=== PATIENT | female | born 1995 | race Caucasian/White ===

== ENCOUNTER → 2017-07-02 | Outpatient (REF) | payer OTHER | LOC: M LAB REF 13:09 | PROVIDERS: ATTEND Physician Assistant Medical | DX: J02.9 Acute pharyngitis, unspecified (principal) ==

== ENCOUNTER 2017-10-16 09:32 | Outpatient (REF) | payer OTHER | END 2017-10-17 | LOC: M LAB REF 09:32 | DX: N30.01 Acute cystitis with hematuria (principal) ==

== ENCOUNTER → 2019-02-02 | Outpatient (CLI) | payer OTHER ==
[2019-02-02 13:48] LABS: MEAN CORPUSCULAR HEMOGLOBIN 34.1 pg (27.0-33.0); MEAN CORPUSCULAR HGB CONC 33.3 g/dl (32.0-36.5); MEAN CORPUSCULAR VOLUME 102.2 fl (80.0-96.0); PLATELET COUNT, AUTOMATED 292 10^3/uL (150-450); RED BLOOD COUNT 4.11 10^6/uL (4.00-5.40); WHITE BLOOD COUNT 6.6 10^3/uL (4.0-10.0)
[2019-02-02 15:18] LABS: ALBUMIN 3.7 GM/DL (3.2-5.2); ALT/SGPT 20 U/L (12-78); BILIRUBIN,TOTAL 0.5 MG/DL (0.2-1.0); BLOOD UREA NITROGEN 11 MG/DL (7-18); CALCIUM LEVEL 9.7 MG/DL (8.5-10.1); CHLORIDE LEVEL 105 MEQ/L (98-107); CHOLESTEROL LEVEL 167 MG/DL (<200); CHOLESTEROL RISK RATIO 1.721 (<5); CREATININE FOR GFR 0.82 MG/DL (0.55-1.30); FREE T4 1.11 NG/DL (0.76-1.46); GLOMERULAR FILTRATION RATE > 60.0 (>60); GLUCOSE, FASTING 84 MG/DL (70-100); HDL CHOLESTEROL 97 MG/DL (>40); LDL CHOLESTEROL 51 MG/DL (<100); NON-HDL-C 70 MG/DL; POTASSIUM SERUM 4.3 MEQ/L (3.5-5.1); SODIUM LEVEL 139 MEQ/L (136-145); TOTAL PROTEIN 7.5 GM/DL (6.4-8.2); TRIGLYCERIDES LEVEL 94 MG/DL (<150)
[2019-02-02 15:33] LABS: CARBON DIOXIDE LEVEL 27 MEQ/L (21-32)
== END ==
LOC: M SMT 10:46
PROVIDERS: ATTEND Advanced Practice Midwife
DX: Z01.411 Encounter for gynecological examination (general) (routine) with abnormal findings (principal)
CPT/HCPCS: 36415; 80053; 80061; 82306; 84439; 84443; 85027; G0123

== ENCOUNTER → 2019-02-02 | Outpatient (REF) | payer OTHER | LOC: M LAB REF 19:40 | PROVIDERS: ATTEND Advanced Practice Midwife | DX: Z12.4 Encounter for screening for malignant neoplasm of cervix (principal) ==

== ENCOUNTER → 2020-06-21 | Outpatient (REF) | payer OTHER ==
[2020-06-21 18:45] LABS: BASO % 0.2 % (0.0-1.0); EOS # 0.1 10^3/uL (0.0-0.5); EOS % 0.6 % (0.0-3.0); HEMOGLOBIN 13.3 g/dl (12.0-15.5); LYMPH # 3.3 10^3/uL (1.5-5.0); LYMPH % 30.6 % (24.0-44.0); MEAN CORPUSCULAR HEMOGLOBIN 34.5 pg (27.0-33.0); MEAN CORPUSCULAR HGB CONC 34.1 g/dl (32.0-36.5); MONO # 0.7 10^3/uL (0.0-0.8); MONO % 6.2 % (0.0-5.0); NEUTROPHILS # 6.7 10^3/uL (1.5-8.5); PLATELET COUNT, AUTOMATED 306 10^3/uL (150-450); RED BLOOD COUNT 3.86 10^6/uL (4.00-5.40); WHITE BLOOD COUNT 10.8 10^3/uL (4.0-10.0)
[2020-06-21 21:18] LABS: CHLAMYDIA DNA AMPLIFICATION NEGATIVE (NEGATIVE); GC DNA AMPLIFICATION NEGATIVE (NEGATIVE)
[2020-06-22 12:15] LABS: HEPATITIS C VIRUS ABY INDEX 0.1 INDEX (<0.8); HIV 1&2 SCREEN CENTAUR NEGATIVE (NEGATIVE)
== END ==
LOC: M LABDRWAD 14:13
PROVIDERS: ATTEND Advanced Practice Midwife
DX: Z34.01 Encounter for supervision of normal first pregnancy, first trimester (principal); Z3A.00 Weeks of gestation of pregnancy not specified

== ENCOUNTER → 2020-07-18 | Outpatient (CLI) | payer OTHER | LOC: M PLALAB 08:50 | PROVIDERS: ATTEND Advanced Practice Midwife | DX: Z13.79 Encounter for other screening for genetic and chromosomal anomalies (principal) ==

== ENCOUNTER → 2020-09-04 | Outpatient (CLI) | payer BC ==
--- NOTE | 2020-09-04 09:36 | REP ---
INDICATION: ANATOMY COMPARISON: None. TECHNIQUE: Transabdominal obstetrical ultrasound with color Doppler evaluation. FINDINGS: Examination demonstrates a single live intrauterine in cephalic presentation. motion is identified by technologist. Placenta is noted anterior and grade 1 without evidence for placenta previa or abruption. Amniotic fluid volume is normal. Cervix measures 3.1 cm in length and appears closed.. Gestational age by current measurements 18 weeks 6 days with SAM 01/30/2021. FHR equals 146 beats per minute. BPD: 4.3 cm 19 weeks 1 day HC: 15.7 cm 18 weeks 4 days AC: 13.5 cm 19 weeks 0 days FL: 2.8 cm 18 weeks 4 days HL: 2.8 cm 18 weeks 6 days HC/AC: 1.16 Estimated weight 258 grams (76thpercentile). Anatomical assessment demonstrates normal structures including cranium, choroid plexus, cavum, cerebellum/posterior fossa, facial features, lungs, four-chamber heart/ventricular outflow tracts, diaphragm, stomach, cord insertion/three-vessel cord, kidneys/bladder, spine, and extremities. Echogenic focus within the left cardiac ventricle likely prominent chordae tendineae. IMPRESSION: Single live intrauterine in cephalic presentation demonstrating appropriate estimated weight. Anatomical assessment is essentially normal as described above. <Electronically signed by Liborio Mcclain > 09/04/20 [id number]
== END ==
LOC: M WHC 07:59
PROVIDERS: ATTEND Advanced Practice Midwife
DX: Z34.02 Encounter for supervision of normal first pregnancy, second trimester (principal); Z3A.18 18 weeks gestation of pregnancy

== ENCOUNTER → 2020-10-29 | Outpatient (REF) | payer OTHER ==
[2020-10-29 12:51] LABS: HEMATOCRIT 35.8 % (36.0-47.0); HEMOGLOBIN 11.9 g/dl (12.0-15.5); MEAN CORPUSCULAR HEMOGLOBIN 34.6 pg (27.0-33.0); MEAN CORPUSCULAR HGB CONC 33.2 g/dl (32.0-36.5); MEAN CORPUSCULAR VOLUME 104.1 fl (80.0-96.0); PLATELET COUNT, AUTOMATED 266 10^3/uL (150-450); RED BLOOD COUNT 3.44 10^6/uL (4.00-5.40); WHITE BLOOD COUNT 11.1 10^3/uL (4.0-10.0)
== END ==
LOC: M PLALAB 10:54 → M SFHCADAM 10:57
PROVIDERS: ATTEND Advanced Practice Midwife
DX: Z34.02 Encounter for supervision of normal first pregnancy, second trimester (principal)

== ENCOUNTER → 2020-11-05 | Outpatient (REF) | payer SELFPAY | LOC: M LABSMTC 08:35 → EDSTATUS 12:25 | PROVIDERS: ATTEND Pediatrics | DX: Z20.822 Contact with and (suspected) exposure to COVID-19 (principal) ==

== ENCOUNTER → 2020-12-26 | Outpatient (REF) | payer OTHER ==
[~2020-12-26] MED LIST: ACET-897 PO; AMOX500C PO; DIFL150T PO; FOLI1TAB11 PO; IBUP80TA PO; MAGN250T22 PO; PEPC1TAB5 PO; PRENTAB9 PO; VALT1TAB PO
[2020-12-26 13:38] LABS: HEMATOCRIT 38.6 % (36.0-47.0); HEMOGLOBIN 12.8 g/dl (12.0-15.5); MEAN CORPUSCULAR HEMOGLOBIN 33.7 pg (27.0-33.0); MEAN CORPUSCULAR HGB CONC 33.2 g/dl (32.0-36.5); MEAN CORPUSCULAR VOLUME 101.6 fl (80.0-96.0); PLATELET COUNT, AUTOMATED 280 10^3/uL (150-450); WHITE BLOOD COUNT 13.3 10^3/uL (4.0-10.0)
[2020-12-26 14:31] LABS: ALT/SGPT 14 U/L (12-78); BILIRUBIN,TOTAL 0.4 MG/DL (0.2-1.0); CREATININE FOR GFR 0.55 MG/DL (0.55-1.30); GLOMERULAR FILTRATION RATE > 60.0 (>60); LDH LACTATE DEHYDROGENASE 146 U/L (84-246); URIC ACID 4.3 MG/DL (2.6-6.0)
[2020-12-26 14:40] LABS: CREATININE,RANDOM URINE 66.1 MG/DL
== END ==
LOC: M PLALAB 10:03
PROVIDERS: ATTEND Advanced Practice Midwife
DX: O16.3 Unspecified maternal hypertension, third trimester (principal); Z3A.00 Weeks of gestation of pregnancy not specified

== ENCOUNTER 2020-12-31 12:08 | Outpatient (CLI) | payer BC, OTHER ==
[~2020-12-31] VITALS: Ht 170.2 cm; Wt 84.0 kg
[2020-12-31] MEDS ORDERED: PRENTAB9 PO (12:17)
[2020-12-31 12:23] VITALS: BP 140/87
[2020-12-31 12:41] VITALS: BP 137/78
[2020-12-31] MEDS ORDERED: BETAMETHASONE SOLUSPAN 6MG/ML 5ML VIAL (J0702 PER 3MG) IM ONE (13:15)
[2020-12-31 13:31] LABS: HEMATOCRIT 37.2 % (36.0-47.0); HEMOGLOBIN 12.7 g/dl (12.0-15.5); MEAN CORPUSCULAR HEMOGLOBIN 34.4 pg (27.0-33.0); MEAN CORPUSCULAR HGB CONC 34.1 g/dl (32.0-36.5); MEAN CORPUSCULAR VOLUME 100.8 fl (80.0-96.0); PLATELET COUNT, AUTOMATED 266 10^3/uL (150-450); RED BLOOD COUNT 3.69 10^6/uL (4.00-5.40); WHITE BLOOD COUNT 13.8 10^3/uL (4.0-10.0)
[2020-12-31 13:41] LABS: INR 0.89; PROTHROMBIN TIME 12.3 SECONDS (12.5-14.3)
[2020-12-31 13:42] LABS: PARTIAL THROMBOPLASTIN TIME 26.4 SECONDS (24.2-38.5)
[2020-12-31 14:03] LABS: AMORPHOUS SEDIMENT SMALL (NEGATIVE); APPEARANCE, URINE HAZY (CLEAR); BACTERIA, URINE AUTO 2+ (NEGATIVE); BILIRUBIN, URINE AUTO NEGATIVE (NEGATIVE); BLOOD, URINE BLOOD 3+ (NEGATIVE); COLOR, URINE RED (YELLOW); GLUCOSE, URINE (UA) AUTO NEGATIVE (NEGATIVE); KETONE, URINE AUTO NEGATIVE (NEGATIVE); LEUKOCYTE ESTERASE, URINE AUTO NEGATIVE (NEGATIVE); NITRITE, URINE AUTO NEGATIVE (NEGATIVE); PROTEIN, URINE AUTO NEGATIVE (NEGATIVE); RBC, URINE AUTO 4 /HPF (0-3); SPECIFIC GRAVITY URINE AUTO 1.002 (1.002-1.035); SQUAMOUS EPITHELIAL CELL UR AU 2 /HPF (0-6); UROBILINOGEN, URINE AUTO 0.2 mg/dL (0.0-2.0); WBC, URINE AUTO 2 /HPF (0-3)
--- NOTE | 2020-12-31 14:06 | REP ---
INDICATION: bleeding. COMPARISON: 09/04/2020. TECHNIQUE: Real-time sonographic evaluation of gravid uterus performed utilizing transabdominal and endovaginal technique. FINDINGS: Fluid is seen throughout the cervical canal with the diameter of the cervix 2-3 mm. There is no measurable closed portion of the cervix. Gestational age is reportedly 35 weeks 5 days with EDC 01/30/2021. position cephalic. Placenta anterior and grade 1 with no previa or abruption. heart rate 134 beats per minute. Amniotic fluid within normal limits. CHRIS 9.6, normal range 7.8-24.9. SD ratio umbilical artery 2.59, normal range 1.65-3.53. RI 0.61, normal range 0.45-0.71. IMPRESSION: Fluid is seen throughout the cervical canal with the diameter of the cervix 2-3 mm. There is no measurable closed portion of the cervix. Normal CHRIS. <Electronically signed by Doug Regan > 12/31/20 [id number]
[2020-12-31 14:38] VITALS: BP 134/76
[2020-12-31] MEDS ORDERED: metroNIDAZOLE (FLAGYL) 500MG TABLET PO ONE (15:35)
[2020-12-31] MEDS: AMOXICILLIN 500 MG CAP PO SCH ×2 (16:45→22:22)
[2020-12-31 16:47] VITALS: BP 119/58
[2020-12-31 19:03] VITALS: BP 145/81
--- NOTE | 2020-12-31 19:50 | IPNPDOC ---
Text Note Date of Service The patient was seen on 12/31/20. NOTE Subjective: Opal is a 25-year-old female who is a at 35.1 weeks ges tation. Her has been uncomplicated. She reports on Thursday she had pink spotting one time when she wiped. She did report a run of contractions that day. Denied vaginal intercourse. Today she reports some cramping and noted dark red/brown spotting when she wiped again today. She reports active movement. She denies leaking of fluid but does report a moderate amount of mucus. Denies vaginal itching or vaginal odor. She did request about a month ago Diflucan for a yeast infection. Objective: FHR: 130, moderate variability, positive accelerations, no decelerations. [place]: occasional General: Alert and oriented. No apparent distress. Respiratory: Regular rate without use accessory muscles. Abdomen: gravid, soft to palpation, very mild contractions noted occasionally with palpation SSE: cervix appears about 50%, no bleeding noted in the vagina, cervical mucous noted with thick white adherent discharge with some brown mixed in dishcarge. SCE: FT/80/-1, midposition, soft, no show with exam. After exam a moderate amount of bleeding was noted. Wet prep: cervical mucus, some red blood cells, scant amount of clue cells, negative whiff test, +yeast buds noted. VS, labs, US: see below. Assessment: IUP at 35.1 weeks gestation, shortened cervical length, candidiasis of vagina, cervicitis, rule out labor Plan: Continue to monitor, US for CHRIS and cervical length. GBS obtained. Betamethasone initiated. Abruption labs ordered due to moderate amount of bleeding and contractions. PO antibiotics and Diflucan given. Plan to discharge with PO antibiotics and 1 more dose of Diflucan if no progression in labor. Patient will be taken out of work for remainder of . VS,Fishbone, I+O VS, Fishbone, I+O Laboratory Tests 12/31/20 13:15 Vital Signs Date Time Temp Pulse Resp B/P (MAP) Pulse Ox O2 Delivery O2 Flow Rate FiO2 12/31/20 19:03 98.5 88 18 145/81 (102) NAME: OPAL KAPOOR DATE OF : 1995 AGE: 25 SEX: F REPORT #: [id number] ROOM: [facility] TECHNOLOGIST: GUMARO DOCTOR: JOANNA DOCKERY CNM Ordered for Date&Time: 12/31/20 1307 cc: [~ rep ct ivnm] Service Date&Time: 12/31/20 1311 EXAMINATION REQUESTED: Obs. Limited, CHRIS US REASON FOR PATIENT VISIT: LABOR CHECK REASON FOR EXAM/COMMENT: bleeding INDICATION: bleeding. COMPARISON: 09/04/2020. TECHNIQUE: Real-time sonographic evaluation of gravid uterus performed utilizing trans abdominal and endovaginal technique. FINDINGS: Fluid is seen throughout the cervical canal with the diameter of the cervix 2-3 mm. There is no measurable closed portion of the cervix. Gestational age is reportedly 35 weeks 5 days with EDC 01/30/2021. position cephalic. Placenta anterior and grade 1 with no previa or abruption. heart rate 134 beats per minute. Amniotic fluid within normal limits. CHRIS 9.6, normal range 7.8-24.9. SD ratio umbilical artery 2.59, normal range 1.65-3.53. RI 0.61, normal range 0.45-0.71. IMPRESSION: Fluid is seen throughout the cervical canal with the diameter of the cervix 2-3 mm. There is no measurable closed portion of the cervix. Normal CHRIS. <Electronically signed by Doug Regan > 12/31/20 1402 JOANNA DOCKERY CNM Dec 31, 2020 19:50
[2020-12-31 20:06] LABS: ALT/SGPT 17 U/L (12-78); BILIRUBIN,TOTAL 0.1 MG/DL (0.2-1.0); CREATININE FOR GFR 0.55 MG/DL (0.55-1.30); GLOMERULAR FILTRATION RATE > 60.0 (>60); LDH LACTATE DEHYDROGENASE 188 U/L (84-246); URIC ACID 4.4 MG/DL (2.6-6.0)
[2020-12-31 20:28] LABS: CREATININE,RANDOM URINE < 13.0 MG/DL; TOTAL PROTEIN,RANDOM URINE 11.7 MG/DL (0.0-12.0)
[2020-12-31 23:12] VITALS: BP 111/59
[2021-01-01] VITALS (7 sets, daily range): BP systolic 126–137; BP diastolic 71–83
[2021-01-01] MEDS: AMOXICILLIN 500 MG CAP PO SCH ×2 (06:05→13:22)
[2021-01-01 06:53] LABS: CREATININE,RANDOM URINE 28.5 MG/DL; TOTAL PROTEIN,RANDOM URINE 9.3 MG/DL (0.0-12.0)
--- NOTE | 2021-01-01 07:58 | IPNPDOC ---
Text Note Date of Service The patient was seen on 01/01/21. NOTE Subjective: Opal is a 25-year-old female who is a at 35.2 weeks with an SAM of 02/03/21. She reports her bleeding has decreased and barely noted until she wipes that is dark brown. She denies cramping but reports some abdominal tightening. [place] any leaking of fluid. Reports active movement. Objective: FHR: 130, moderate variability, positive accelerations, no decelerations. [place]: every 2-6 minutes VS and labs: stable. Spot urine is decreasing -elevated likely due to blood in urine. Will repeat on . General: Alert and oriented. No apparent distress. Respiratory: Regular rate without use of accessory muscles. Abdomen: Abdomen not tender. Very mild palpation when contractions occur. Assessment: IUP at 35.2 weeks gestation, cervicitis, candidiasis, shortened cervix Plan: Patient to be discharged to home after her betamethasone has been given. Scripts sent for antibiotics and 1 more dose of Flagyl. She has been taken out of work for the remainder of her . She will be discharged with precautions. Appointment scheduled for this week. VS,Fishbone, I+O VS, Fishbone, I+O Laboratory Tests 12/31/20 13:15 Vital Signs Date Time Temp Pulse Resp B/P (MAP) Pulse Ox O2 Delivery O2 Flow Rate FiO2 01/01/21 07:25 99.2 82 16 137/83 (101) JOANNA DOCKERY CNM Jan 01, 2021 07:58
[2021-01-01] MEDS ORDERED: AMOX500C PO (08:08)
[2021-01-01] MEDS ORDERED: DIFL150T PO (08:08)
[2021-01-01] MEDS ORDERED: BETAMETHASONE SOLUSPAN 6MG/ML 5ML VIAL (J0702 PER 3MG) IM ONE (13:15)
== END 2021-01-01 13:40 | disposition home or self-care (01) ==
LOC: M LDO 12:08
PROVIDERS: ATTEND Advanced Practice Midwife
DX: O23.513 Infections of cervix in pregnancy, third trimester (principal); O46.93 Antepartum hemorrhage, unspecified, third trimester; Z3A.35 35 weeks gestation of pregnancy; O26.873 Cervical shortening, third trimester; B37.9 Candidiasis, unspecified
CPT/HCPCS: 36415; 59025; 76815; 76817; 81001; 82247; 82565; 82570; 83615; 84156; 84450; 84460; 84550; 85027; 85384; 85610; 85730; 86780; 86850; 86900; 86901; 87081; 96372; G0378; G0463; J0702

== ENCOUNTER 2021-01-06 18:31 | Inpatient (IN) | payer BC, OTHER ==
[2021-01-06] VITALS (25 sets, daily range): BP systolic 121–158; BP diastolic 68–97
[~2021-01-06] VITALS: Ht 170.2 cm; Wt 86.0 kg
[~2021-01-06 18:31] MED LIST changes: -ACET-897 PO; -FOLI1TAB11 PO; -IBUP80TA PO; -MAGN250T22 PO; -PEPC1TAB5 PO; -VALT1TAB PO
[2021-01-06] MEDS ORDERED: LACTATED RINGER'S 1000 ML IV STA (19:13)
[2021-01-06] MEDS ORDERED: TRANEXAMIC ACID INJection 1,000 MG in NS 100 ML IV PRN (19:15)
[2021-01-06] MEDS ORDERED: CARBOPROST TROMETHAMINE 250 MCG/ML AMP IM PRN (19:15)
[2021-01-06] MEDS ORDERED: METHYLERGONOVINE MALEATE 0.2 MG/ML VIAL (J2210) IM PRN (19:15)
[2021-01-06] MEDS ORDERED: OXYTOCIN DRIP 30 UNITS in IV 1 EA IV PRN (19:15)
--- NOTE | 2021-01-06 19:57 | HPEPDOC ---
Obstetrical History & Physical General Date of Admission Jan 06, 2021 at 19:05 Primary Care Physician: JOANNA DOCKERY CNM History of Present Illness Opal is a 25-year-old female who is a at 36 weeks gestation with an SAM of 02/03/21 based off of her first trimester ultrasound. she initiated car ein her first trimester of with WWBC. 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 No infection in the last 4 + weeks. She has a history of migraines and has been taking Magnesium for prevention. She was diagnosed with GHTN and a short cervical length at 35 weeks. Her cervix measured 2-3 mm and she was diagnosed with a yeast infection at that time. She was betamethasone complete on 01/01/21. She presents to L&D with complaints of leaking of fluid starting at 1700. Fluid was clear. She reports contractions and active movement. She denies vaginal bleeding. Chief Complaint: Rupture of membranes Information Provided By: Patient Age: 25 : 1 Term: 0 Pre-term: 0 Abortions: 0 Livin Care Care: Good Care Dating Final EDC: Feb 03, 2021 Final EDC by: 1st trimester (US) EGA at Admission: 36 Antepartum Course Diagnos(e)s short cervical length at 35 weeks- beta complete HSV II- GHTN diagnosed at 35 weeks Past Medical History Past Obstetrical History : Past Obstetrical History: [employer] History: Herpes simplex virus(HSV) Past Medical History Surgical History: Appendectomy, Tonsilectomy Family History Significant Family History: Cancer (kidney, pancreatic, prostate), Diabetes, Hypertension, Other (hypothyroidism) Social History Marital Status: Family situation: Spouse/partner home Psychosocial History: No pertinent psych hx * Smoker: non-smoker Alcohol: Denies Drugs: denies Abuse Violence Screening Have you been hit/kicked/slapp: No Imunizations Tdap status: current Influenza Status: current Allergies Coded Allergies: No Known Allergies (Unverified , 12/31/20) Medications Scheduled Amoxicillin (Amoxicillin) 500 Mg Capsule, 500 MG PO Q8H Fluconazole (Diflucan) 150 Mg Tablet, 1 TAB PO ONCE for yeast infection No.137/Iron/Folic Acd ( Vitamin Tablet) 1 Each Tablet, 1 TAB PO DAILY Physical Examination Physical Examination GENERAL: Alert and oriented times three. BREAST: . ABDOMEN: Gravid and non-tender to touch. FETUS: Is vertex (VTX) by sterile vaginal examination (SVE), fetus is vertex (VTX) by Crow. EFW 3300 grams. Cephalic via ultrasound. LUNGS: Clear to auscultation (CTA). EXTREMITIES: No edema. No clonus. Deep tendon reflexes (DTRs) + 2. Laboratory Data 24H LABS Laboratory Tests 2 01/06/21 19:08: Serology Scanned Report Hepatitis B Testing Urine Culture: No Growth Pertinent Laboratoy Data Blood Type: A+ RBC Antibody Screen: Negative HIV: Negative Hepatitis B: Negative Hepatitis C: Negative Rapid Plasma Reagin: Nonreactive Rubella: Immune Chlamydia/Gonorrhea: Negative Group B Streptococcus: Negative Cystic Fibrosis: Negative Glucose Tolerance Test: 88 Vaginal Examination Dilation: 1cm Effacement: 100% Station: -1 (+ nitrazine noted on pad. ) Cervical Position: Anterior Presentation: Cephalic presentation Position: Vertex (occiput) Assessment Heart Rate (FHR): 140 Variability: Moderate Accelerations: Positive Decelerations: None Tocometer Contractions: Yes Frequency: regular, every 2-5 min. Multi-drug resistant Organism: No history of MDRO Assessment/Plan Assessment IUP at 36 weeks gestation GBS negative GHTN PROM Category I FHR tracing Plan Admit to L&D. OOB ad donal. Diet: clears. Group B Streptococcus (GBS) negative. Labs and intravenous (IV) per unit protocol. Counseled on Pitocin for induction of labor. Anesthesia consult per patient's request. Lactated Ringers (LR): Bolus 800 mL, then at 125 mL/hr. Dr. Fang notified for neonatology. Anticipate cervical change. C-S as appropriate. JOANNA DOCKERY CNM Jan 06, 2021 19:57
[2021-01-06 20:20] LABS: HEMATOCRIT 41.7 % (36.0-47.0); HEMOGLOBIN 14.2 g/dl (12.0-15.5); MEAN CORPUSCULAR HEMOGLOBIN 33.8 pg (27.0-33.0); MEAN CORPUSCULAR HGB CONC 34.1 g/dl (32.0-36.5); MEAN CORPUSCULAR VOLUME 99.3 fl (80.0-96.0); PLATELET COUNT, AUTOMATED 311 10^3/uL (150-450); WHITE BLOOD COUNT 16.9 10^3/uL (4.0-10.0)
[2021-01-06] MEDS ORDERED: OXYTOCIN DRIP 30 UNITS in IV 1 EA IV SCH (20:35)
[2021-01-06] MEDS ORDERED: ACETAMINOPHEN 500 MG TAB PO PRN (20:35)
[2021-01-06] MEDS ORDERED: ACET-897 PO (20:36)
[2021-01-06] MEDS ORDERED: PEPC1TAB5 PO (20:36)
[2021-01-06] MEDS ORDERED: FOLI1TAB11 PO (20:36)
[2021-01-06] MEDS ORDERED: MAGN250T22 PO (20:36)
[2021-01-06] MEDS ORDERED: VALT1TAB PO (20:36)
[2021-01-06 20:45] LABS: ALT/SGPT 16 U/L (12-78); BILIRUBIN,TOTAL < 0.1 MG/DL (0.2-1.0); CREATININE FOR GFR 0.63 MG/DL (0.55-1.30); GLOMERULAR FILTRATION RATE > 60.0 (>60); LDH LACTATE DEHYDROGENASE 158 U/L (84-246); URIC ACID 4.1 MG/DL (2.6-6.0)
[2021-01-06] MEDS ORDERED: valACYclovir HCL 500 MG TAB PO SCH (21:00)
[2021-01-06] MEDS ORDERED: FENTANYL 2MCG/ML ROPIVACAINE 0.2% IN 0.9% NACL 100ML IVBAG As Ordered ONE (21:57)
[2021-01-06] MEDS: LR 1,000 ML IV SCH (22:55)
[2021-01-06] MEDS ORDERED: diphenhydrAMINE 50MG/ML VIAL (J1200) IV PRN (23:35)
[2021-01-06] MEDS ORDERED: LACTATED RINGER'S 1000 ML IV PRN (23:35)
[2021-01-06] MEDS ORDERED: EPIDURAL COMMENT XX SCH (23:35)
[2021-01-06] MEDS ORDERED: NALOXONE INJ 0.4MG/1ML VIAL (J2310 PER 1MG) IV PRN (23:35)
[2021-01-06] MEDS ORDERED: FENTANYL/ROPIVACAINE/NACL BAG 100 ML EPIDURAL SCH (23:35)
[2021-01-06] MEDS ORDERED: REFRIGERATOR IV KEYS XX PRN (23:35)
[2021-01-06] MEDS ORDERED: ePHEDrine SULFATE 25 MG/5 ML(5MG/ML) SYRINGE IV PRN (23:35)
[2021-01-06] MEDS ORDERED: EPIDURAL/PCA KEYS XX PRN (23:35)
[2021-01-06] MEDS ORDERED: ONDANSETRON 4MG/2ML VIAL IV PRN (23:35)
[2021-01-07] VITALS (16 sets, daily range): BP systolic 100–155; BP diastolic 56–85
[2021-01-07] MEDS: LR 1,000 ML IV SCH (01:58)
[2021-01-07] MEDS ORDERED: OXYTOCIN DRIP 30 UNITS in IV 1 EA IV SCH (03:56)
[2021-01-07] MEDS ORDERED: MEASLES,MUMPS,RUBELLA VACCINE INJ (MMR-II) (90707) SC SCH (04:00)
[2021-01-07] MEDS ORDERED: RHOGAM 300 MCG (1500 IU) INJ (J2790) IM SCH (04:00)
[2021-01-07] MEDS ORDERED: DIBUCAINE 1% OINTMENT 30GM TOP PRN (04:00)
[2021-01-07] MEDS ORDERED: METHYLERGONOVINE MALEATE 0.2 MG TAB PO PRN (04:00)
[2021-01-07] MEDS ORDERED: IBUPROFEN 600MG TAB PO PRN (04:00)
[2021-01-07] MEDS ORDERED: DOCUSATE SODIUM 100MG CAPSULE PO PRN (04:00)
[2021-01-07] MEDS ORDERED: ACETAMINOPHEN TAB 650MG DOSE (2X325MG) PO PRN (04:00)
[2021-01-07] MEDS ORDERED: ANUSOL HC CREAM 30GM TOP PRN (04:00)
--- NOTE | 2021-01-07 04:14 | DNPDOC ---
[facility] Delivery Note Delivery Note DATE OF DELIVERY: 01/07/21 AT 0323 PREDELIVERY DIAGNOSIS: 36-1/7 weeks' gestation and spontaneous rupture with labor. POST DELIVERY DIAGNOSIS: Delivered. PROCEDURE: Spontaneous vaginal delivery. COMB FIXER: Joanna Hurtado CNM, RUIZ ANESTHESIA: epidural. ESTIMATED BLOOD LOSS: 150 mL. FINDINGS: pound ounce male , Score 9/9, right compound hand, rupture with active labor, short umbilical cord. DELIVERY SUMMARY: Opal is a 25-year-old female who is now a who presented with rupture of membranes at 36 weeks gestation. She received betamethasone last week for spotting and shortened cervix. She requested an epidural for pain management. She progressed to fully dilated at 0122. Prior to first push she reported feeling nauseous. After her first push there was an 8-[address] Canales was called into room for evaluation. The baby recovered and Dr. Canales was able to manually rotate baby into MAGDALENA position from ROP. Opal pushed to a vaginal delivery with baby in MAGDALENA position with restitution to ROT. A right compound hand was noted. The anterior shoulder delivered with ease and the corpus was placed on the maternal abdomen. With the delivery of the fetus the umbilical cord was midway due to traction and a very short umbilical cord. The cord was grasped and clamped quickly. Umbilical cord appears to be less than 15 cm. The placenta delivered easily after the end of the cord was clamped and traction was used. The placenta appears small for gestation. Both the cord and placenta were sent to pathology. Uterine hemostasis was achieved via rapid infusion of IV Pitocin and fundal massage. The cervix, perineum, and vagina were inspected and found to have a 2nd degree perineal laceration that was repaired with a 3.0 Vicryl. They plan on naming him Kristofer. She plans to breastfeed. All counts of instruments and sponges are correct. Both mom and baby are in stable condition. JOANNA HURTADO CNM Jan 07, 2021 04:14
[2021-01-07] MEDS: IBUPROFEN 800 MG TAB PO PRN ×2 (05:31→17:53)
[2021-01-07] MEDS ORDERED: FAMOTIDINE 20 MG TAB PO SCH (09:00)
[2021-01-07] MEDS: PRENATAL VITAMINS CHEWABLE TABLET PO SCH (09:08)
[2021-01-07] MEDS: ACETAMINOPHEN 500 MG TAB PO PRN (11:20)
[2021-01-08] MEDS: IBUPROFEN 800 MG TAB PO PRN ×3 (03:48→22:31)
[2021-01-08 05:58] VITALS: BP 111/58
--- NOTE | 2021-01-08 07:31 | IPNPDOC ---
Progress Note Date of Service: Jan 08, 2021 Day#: 1 Progress Note SUBJECT: Opal is a 25-year-old female who is a who presented at 36 weeks gestation with SROM and active labor. she had vaginal delivery of a living male. She has been ambulating, voiding spontaneously without issue and tolerating regular diet. Breast feeding without issue on left side and using a nipple shield on her left. OBJECTIVE: VITAL SIGNS: Within normal limits, afebrile. Alert and oriented times three. Breath sounds clear to auscultation. Abdomen: Fundus firm at U-4. Soft, NTTP. Minimal lochia. ASSESSMENT: 1 day PLAN: 1. Continue supportive nursing care. 2. Anticipate discharge to home tomorrow. VS, I&O, 24H, Fishbone Vital Signs/I&O Vital Signs Date Time Temp Pulse Resp B/P (MAP) Pulse Ox O2 Delivery O2 Flow Rate FiO2 01/08/21 05:58 98.0 90 16 111/58 (75) 98 Room Air I&O- Last 24 Hours up to 6 AM 01/08/21 06:00 Output Total 800 ml Balance -800 ml JOANNA DOCKERY CNM Jan 08, 2021 07:31
[2021-01-08] MEDS: PRENATAL VITAMINS CHEWABLE TABLET PO SCH (08:18)
[2021-01-08] MEDS: ACETAMINOPHEN 500 MG TAB PO PRN ×2 (08:18→20:02)
[2021-01-08 18:04] VITALS: BP 122/78
[2021-01-09] MEDS: ACETAMINOPHEN 500 MG TAB PO PRN ×2 (05:18→15:02)
[2021-01-09 06:00] VITALS: BP 116/62
[2021-01-09] MEDS ORDERED: IBUP80TA PO (06:35)
[2021-01-09] MEDS: PRENATAL VITAMINS CHEWABLE TABLET PO SCH (07:57)
[2021-01-09] MEDS: IBUPROFEN 800 MG TAB PO PRN ×2 (07:57→15:03)
== END 2021-01-09 15:55 | disposition home or self-care (01) | DRG 560 ==
LOC: M LDO 18:31 → M LDI 19:05 → M OBS 01-07 06:23
PROVIDERS: ADMIT Advanced Practice Midwife; ATTEND Advanced Practice Midwife
PROC: 10E0XZZ Delivery of Products of Conception, External Approach (ICD-10-PCS; principal; 2021-01-07)
PROC: 0KQM0ZZ Repair Perineum Muscle, Open Approach (ICD-10-PCS; principal; 2021-01-07)
DX: O42.013 Preterm premature rupture of membranes, onset of labor within 24 hours of rupture, third trimester (principal); Z3A.36 36 weeks gestation of pregnancy; Z37.0 Single live birth; O13.4 Gestational [pregnancy-induced] hypertension without significant proteinuria, complicating childbirth; O26.873 Cervical shortening, third trimester; O64.5XX0 Obstructed labor due to compound presentation, not applicable or unspecified; O69.3XX0 Labor and delivery complicated by short cord, not applicable or unspecified; O70.1 Second degree perineal laceration during delivery

== ENCOUNTER → 2021-07-02 | Outpatient (REF) ==
[~2021-07-02] MED LIST changes: +ACET-897 PO; +FOLI1TAB11 PO; +IBUP80TA PO; +MAGN250T22 PO; +PEPC1TAB5 PO; +VALT1TAB PO
== END ==
LOC: M EMP 10:48
PROVIDERS: ATTEND Family Medicine
DX: Z11.52 Encounter for screening for COVID-19 (principal); Z20.822 Contact with and (suspected) exposure to COVID-19

== ENCOUNTER → 2021-07-06 | Outpatient (REF) | LOC: M LABSMTC 10:28 | PROVIDERS: ATTEND Pediatrics | DX: Z20.822 Contact with and (suspected) exposure to COVID-19 (principal) ==

== ENCOUNTER → 2021-08-28 | Outpatient (CLI) | payer BC, OTHER ==
--- NOTE | 2021-08-30 10:31 | REP ---
INDICATION: HYPERTHYROIDISM. COMPARISON: None. TECHNIQUE/RADIOTRACER AND DOSE: After the oral administration of 361.0 uCi of radio iodide 123 a thyroid scan and uptake was performed. FINDINGS: The activity within the thyroid gland is slightly above baseline. There is no evidence of a hot or cold nodule. There is no scintigraphic evidence of thyromegaly. The 24 hour uptake calculation is 1.86%. IMPRESSION: Findings consistent with severe hypothyroidism which could be secondary to burned-out hyperthyroidism due to Pearl's thyroiditis or other form of thyroiditis. This should be evaluated clinically. <Electronically signed by Regan Covington > 08/30/21 0634
== END ==
LOC: M RAD 13:36
PROVIDERS: ATTEND Internal Medicine Endocrinology, Diabetes & Metabolism
DX: E05.00 Thyrotoxicosis with diffuse goiter without thyrotoxic crisis or storm (principal)
CPT/HCPCS: 78012; A9516

== ENCOUNTER → 2021-09-30 | Outpatient (CLI) | payer BC, OTHER ==
[2021-09-30 14:20] LABS: FREE T4 0.73 NG/DL (0.76-1.46); THYROID STIMULATING HORMONE 11.7 uIU/ML (0.358-3.740)
== END ==
LOC: M PLALAB 09:23
PROVIDERS: ATTEND Nurse Practitioner Family
DX: E05.00 Thyrotoxicosis with diffuse goiter without thyrotoxic crisis or storm (principal)

== ENCOUNTER → 2021-11-11 | Outpatient (REF) | LOC: M LABSMTC 13:22 | PROVIDERS: ATTEND Family Medicine | DX: Z11.52 Encounter for screening for COVID-19 (principal); Z20.822 Contact with and (suspected) exposure to COVID-19 ==

== ENCOUNTER → 2022-07-06 | Outpatient (REF) | LOC: M LABSMTC 12:06 | PROVIDERS: ATTEND Family Medicine | DX: Z20.822 Contact with and (suspected) exposure to COVID-19 (principal) ==

== ENCOUNTER → 2022-11-05 | Outpatient (REF) | payer BC | LOC: M PLALAB 11:32 | PROVIDERS: ATTEND Advanced Practice Midwife | DX: Z12.4 Encounter for screening for malignant neoplasm of cervix (principal) ==

== ENCOUNTER → 2023-01-17 | Outpatient (CLI) | payer BC ==
[2023-01-17 15:40] LABS: THYROID STIMULATING HORMONE 1.264 uIU/ML (0.55-4.78)
== END ==
LOC: M LAB 14:53
PROVIDERS: ATTEND Nurse Practitioner Family
DX: E06.9 Thyroiditis, unspecified (principal)

== ENCOUNTER → 2023-10-23 | Outpatient (REF) | LOC: M EMP 08:17 | PROVIDERS: ATTEND Family Medicine | DX: Z11.52 Encounter for screening for COVID-19 (principal) ==

== ENCOUNTER → 2023-11-13 | Outpatient (REF) | payer BC | LOC: M PLALAB 10:09 | PROVIDERS: ATTEND Advanced Practice Midwife | DX: Z01.419 Encounter for gynecological examination (general) (routine) without abnormal findings (principal); N93.0 Postcoital and contact bleeding; B96.89 Other specified bacterial agents as the cause of diseases classified elsewhere | CPT/HCPCS: 87070; 87077; 87624; G0123 ==

== ENCOUNTER → 2024-12-02 | Outpatient (CLI) | payer BC | LOC: M PLALAB 11:18 | PROVIDERS: ATTEND Advanced Practice Midwife | DX: O20.9 Hemorrhage in early pregnancy, unspecified (principal) ==

== ENCOUNTER → 2024-12-04 | Outpatient (CLI) | payer BC | LOC: M LAB 11:33 | PROVIDERS: ATTEND Advanced Practice Midwife | DX: O20.9 Hemorrhage in early pregnancy, unspecified (principal) ==

== ENCOUNTER → 2024-12-12 | Outpatient (CLI) | payer BC | LOC: M LAB 16:40 | PROVIDERS: ATTEND Advanced Practice Midwife | DX: O03.9 Complete or unspecified spontaneous abortion without complication (principal) ==

== ENCOUNTER → 2025-01-06 | Outpatient (REF) | payer BC ==
[2025-01-10 11:54] LABS: HPV APTIMA Not Detected (Not Detected)
== END ==
LOC: M SFHCWAGY 16:48
PROVIDERS: ATTEND Advanced Practice Midwife
DX: Z12.4 Encounter for screening for malignant neoplasm of cervix (principal); Z77.9 Other contact with and (suspected) exposures hazardous to health
CPT/HCPCS: 87624; G0123

== ENCOUNTER → 2025-01-09 | Outpatient (CLI) | payer BC | LOC: M LAB 16:14 | PROVIDERS: ATTEND Advanced Practice Midwife | DX: Z87.59 Personal history of other complications of pregnancy, childbirth and the puerperium (principal) ==

== ENCOUNTER → 2025-01-11 | Outpatient (CLI) | payer BC | LOC: M LAB 16:50 | PROVIDERS: ATTEND Advanced Practice Midwife | DX: Z87.59 Personal history of other complications of pregnancy, childbirth and the puerperium (principal); A60.09 Herpesviral infection of other urogenital tract ==

== ENCOUNTER → 2025-02-21 | Outpatient (CLI) | payer BC ==
[2025-02-21 11:27] LABS: HEMATOCRIT 37.6 % (36.0-47.0); HEMOGLOBIN 12.6 g/dl (12.0-15.5); MEAN CORPUSCULAR HEMOGLOBIN 33.9 pg (27.0-33.0); MEAN CORPUSCULAR HGB CONC 33.5 g/dl (32.0-36.5); MEAN CORPUSCULAR VOLUME 101.1 fl (80.0-96.0); PLATELET COUNT, AUTOMATED 293 10^3/uL (150-450); RED BLOOD COUNT 3.72 10^6/uL (4.00-5.40); WHITE BLOOD COUNT 8.8 10^3/uL (4.0-10.0)
[2025-02-21 11:54] LABS: URIC ACID 2.9 MG/DL (3.1-7.8)
[2025-02-21 11:56] LABS: LDH LACTATE DEHYDROGENASE 146 U/L (120-246)
[2025-02-21 11:57] LABS: CREATININE,RANDOM URINE 53.1 MG/DL
[2025-02-21 11:58] LABS: TOTAL PROTEIN,RANDOM URINE < 6.0 MG/DL (0.0-14.0)
[2025-02-21 11:58] LABS: ALT/SGPT 13 U/L (7.0-40); AST/SGOT 9 U/L (<34); BILIRUBIN,TOTAL 0.4 MG/DL (0.3-1.2); CREATININE FOR GFR 0.59 MG/DL (0.55-1.30); GLOMERULAR FILTRATION RATE > 90.0 (>60)
[2025-02-21 12:03] LABS: THYROID STIMULATING HORMONE 2.765 uIU/ML (0.55-4.78)
[2025-02-21 12:04] LABS: FREE T4 1.08 NG/DL (0.89-1.76)
[2025-02-21 12:28] LABS: HIV 1&2 SCREEN NEGATIVE (NEGATIVE)
[2025-02-21 12:36] LABS: HEPATITIS C VIRUS ABY INDEX 0.07 INDEX (<0.8)
[2025-02-21 13:06] LABS: Trichomonas vaginalis (AMP) NOT DETECTED (NEGATIVE)
[2025-02-21 13:29] LABS: GC DNA AMPLIFICATION NEGATIVE (NEGATIVE)
== END ==
LOC: M LAB 10:03
PROVIDERS: ATTEND Advanced Practice Midwife
DX: Z34.81 Encounter for supervision of other normal pregnancy, first trimester (principal)

== ENCOUNTER → 2025-04-17 | Outpatient (REF) | payer BC | LOC: M SMT 17:04 | PROVIDERS: ATTEND Advanced Practice Midwife | DX: O26.899 Other specified pregnancy related conditions, unspecified trimester (principal) ==

== ENCOUNTER → 2025-04-17 | Outpatient (CLI) | payer BC ==
[2025-04-17 16:24] LABS: FREE T4 1.09 NG/DL (0.89-1.76)
== END ==
LOC: M PLALAB 14:04
PROVIDERS: ATTEND Advanced Practice Midwife
DX: O99.280 Endocrine, nutritional and metabolic diseases complicating pregnancy, unspecified trimester (principal); Z3A.00 Weeks of gestation of pregnancy not specified

== ENCOUNTER → 2025-05-23 | Outpatient (CLI) | payer BC | LOC: M RAD 09:52 | PROVIDERS: ATTEND Advanced Practice Midwife | DX: Z34.82 Encounter for supervision of other normal pregnancy, second trimester (principal); Z3A.22 22 weeks gestation of pregnancy ==

== ENCOUNTER → 2025-06-13 | Outpatient (CLI) | payer BC ==
[2025-06-13 14:21] LABS: GLUCOSE CHALLENGE TEST 1 HOUR 91 MG/DL (LESS THAN 140)
[2025-06-13 14:22] LABS: PLATELET COUNT, AUTOMATED 317 10^3/uL (150-450)
[2025-06-13 14:27] LABS: FREE T4 0.97 NG/DL (0.89-1.76)
[2025-06-13 14:58] LABS: HIV 1&2 SCREEN NEGATIVE (NEGATIVE)
[2025-06-13 15:05] LABS: HEPATITIS C VIRUS ABY INDEX < 0.02 INDEX (<0.8)
[2025-06-13 15:30] LABS: Trichomonas vaginalis (AMP) NOT DETECTED (NEGATIVE)
[2025-06-13 15:54] LABS: GC DNA AMPLIFICATION NEGATIVE (NEGATIVE)
== END ==
LOC: M PLALAB 09:08
PROVIDERS: ATTEND Advanced Practice Midwife
DX: O99.280 Endocrine, nutritional and metabolic diseases complicating pregnancy, unspecified trimester (principal)

== ENCOUNTER → 2025-06-19 | Outpatient (CLI) | payer BC | LOC: M RAD 08:14 | PROVIDERS: ATTEND Advanced Practice Midwife | DX: Z34.80 Encounter for supervision of other normal pregnancy, unspecified trimester (principal); Z3A.27 27 weeks gestation of pregnancy ==

== ENCOUNTER → 2025-07-19 | Outpatient (CLI) | payer BC ==
[2025-07-19 08:57] LABS: FREE T4 0.97 NG/DL (0.89-1.76)
== END ==
LOC: M RAD 07:02
PROVIDERS: ATTEND Advanced Practice Midwife
DX: O10.013 Pre-existing essential hypertension complicating pregnancy, third trimester (principal); O99.283 Endocrine, nutritional and metabolic diseases complicating pregnancy, third trimester; E03.9 Hypothyroidism, unspecified; Z3A.31 31 weeks gestation of pregnancy

== ENCOUNTER → 2025-07-31 | Outpatient (REF) | payer BC | LOC: M SFHCWAGY 16:39 | PROVIDERS: ATTEND Advanced Practice Midwife | DX: Z3A.33 33 weeks gestation of pregnancy (principal) ==

== ENCOUNTER → 2025-08-10 | Outpatient (CLI) | payer BC ==
[~2025-08-10] MED LIST changes: +ECOT81TA5 PO; +EFFE37.52 PO; +LABE100T40 PO; +SYNT75TA PO
== END ==
LOC: M RAD 08:42
PROVIDERS: ATTEND Advanced Practice Midwife
DX: O10.013 Pre-existing essential hypertension complicating pregnancy, third trimester (principal); Z3A.35 35 weeks gestation of pregnancy

== ENCOUNTER 2025-08-15 08:09 | Outpatient (CLI) | payer BC ==
[~2025-08-15] VITALS: Ht 170.2 cm; Wt 94.6 kg
[~2025-08-15 08:09] MED LIST changes: -ECOT81TA5 PO; -EFFE37.52 PO; -LABE100T40 PO; -SYNT75TA PO
[2025-08-15 08:21] VITALS: BP 105/64
[2025-08-15] MEDS: BETAMETHASONE SOLUSPAN 6 MG/ML 5 ML VIAL IM SCH (08:27)
[2025-08-15] MEDS ORDERED: ECOT81TA5 PO (08:37)
[2025-08-15] MEDS ORDERED: LABE100T40 PO (08:37)
[2025-08-15] MEDS ORDERED: SYNT75TA PO (08:37)
[2025-08-15] MEDS ORDERED: EFFE37.52 PO (08:37)
[2025-08-15 08:39] VITALS: BP 120/72
[2025-08-16] MEDS ORDERED: VALA500T5 PO (08:23)
== END 2025-08-15 08:44 | disposition home or self-care (01) ==
LOC: M LDO 08:09
PROVIDERS: ATTEND Advanced Practice Midwife
DX: O10.013 Pre-existing essential hypertension complicating pregnancy, third trimester (principal); O41.03X0 Oligohydramnios, third trimester, not applicable or unspecified; Z3A.36 36 weeks gestation of pregnancy
CPT/HCPCS: 96372; G0463; J0702

== ENCOUNTER 2025-08-16 08:08 | Outpatient (CLI) | payer BC ==
[~2025-08-16] VITALS: Ht 170.2 cm; Wt 95.2 kg
[~2025-08-16 08:08] MED LIST changes: +ECOT81TA5 PO; +EFFE37.52 PO; +LABE100T40 PO; +SYNT75TA PO
[2025-08-16 08:22] VITALS: BP 120/68
[2025-08-16] MEDS ORDERED: VALA500T5 PO (08:23)
[2025-08-16] MEDS ORDERED: HOME MED LIST COMPLETE! XX SCH (08:30)
[2025-08-16] MEDS: BETAMETHASONE SOLUSPAN 6 MG/ML 5 ML VIAL IM ONE (08:45)
== END 2025-08-16 08:45 | disposition home or self-care (01) ==
LOC: M LDO 08:08
PROVIDERS: ATTEND Advanced Practice Midwife
DX: O10.013 Pre-existing essential hypertension complicating pregnancy, third trimester (principal); O41.03X0 Oligohydramnios, third trimester, not applicable or unspecified; Z3A.36 36 weeks gestation of pregnancy
CPT/HCPCS: 59025; 96372; G0463; J0702